=== PATIENT | male | born 1935 | race Caucasian/White ===

== ENCOUNTER 2016-09-09 05:18 | Day surgery (SDC) | payer OTHER, BC ==
[2016-09-04 10:48] VITALS: BMI 28.8
[2016-09-09] MEDS ORDERED: LIDOCAINE HCL 1%, 10 MG/ML (20ML VIAL) ONE ×2 (11:16→13:17)
[2016-09-09] MEDS ORDERED: ACETAMINOPHEN 1000 MG/100 ML VIAL (NON FORMULARY) IVPB ONE (12:24)
[2016-09-09] MEDS ORDERED: IBUPROFEN 800 MG/8 ML IJ IVPB PRN (12:24)
[2016-09-09] MEDS ORDERED: DEXTROSE 5%-0.45% SALINE 1,000 ML IV SCH (12:30)
[2016-09-09] MEDS ORDERED: ceFAZolin SODIUM 1 GM VIAL IVPB ONE (12:35)
[2016-09-09] MEDS ORDERED: MIDAZOLAM HCL 2 MG/2 ML SINGLE DOSE VIAL ONE (12:37)
[2016-09-09] MEDS ORDERED: PROPOFOL 20 ML ONE ×3 (12:37)
[2016-09-09] MEDS ORDERED: LIDOCAINE HCL 1%, 10 MG/ML (20ML VIAL) IJ ONE (13:24)
[2016-09-09] MEDS ORDERED: LIDOCAINE HCL/PF 2% SDV 5ML VIAL ONE (13:26)
[2016-09-09] MEDS ORDERED: ceFAZolin SODIUM 1 GM VIAL ONE (13:26)
[2016-09-09] MEDS ORDERED: oxyCODONE HCL 5 MG TABLET PO PRN (13:41)
[2016-09-09] MEDS ORDERED: LACTATED RINGERS SOLUTION 1,000 ML IV SCH (13:45)
[2016-09-09 15:12] VITALS: TEMP 97.6
[2016-09-09 16:20] VITALS: BP 149/77; PULSE 64
--- NOTE | 2016-09-22 10:25 | OP ---
DATE OF OPERATION: 09/09/2016 PREOPERATIVE DIAGNOSIS: Urge urinary incontinence. POSTOPERATIVE DIAGNOSIS: Urge urinary incontinence. PROCEDURE: InterStim battery and lead implant. ANESTHESIA: Local with IV sedation. SURGEON: Reid Hartley M.D. FINDING: S3 stimulation at low amplitude. ESTIMATED BLOOD LOSS: Minimal. PREOPERATIVE INDICATIONS: The patient is a 80-year-old male who suffers from urge urinary incontinence. He underwent a test InterStim trial, which revealed greater than 50% improvement in his symptoms. He comes to the OR for implant. OPERATION: The patient was brought to the OR, placed on the table in the prone position. All pressure points were protected. Patient was given IV sedation and IV antibiotics. The back was prepped and draped sterilely. Timeout was performed. The S3 foramina were identified both with bony landmarks and with fluoroscopy. Spinal needles were placed into the S3 foramen bilaterally and good S3 response was noted at low amplitude on the right side. Of note was reflection and sensation in the testicles. A quadruple lead was then placed under fluoroscopic guidance using the Seldinger technique under fluoroscopy. Again the lead was tested and all 4 leads displayed good response at low amplitude. This lead was then tunneled underneath the skin to an incision made on the lateral aspect of the right hip. The lead was then connected to a battery, which was implanted in the pocket made in this area. were checked and noted to be normal. The pocket was closed in 2 layers using 3-0 and 4-0 Vicryl and the original lead placement was closed using 4-0 Monocryl. Wounds were dressed. Patient was awoken up. Rodrigo [id number]
== END 2016-09-09 16:26 | disposition home or self-care (01) ==
LOC: JASU-SURG 05:18
PROVIDERS: ATTEND Urology
PROC: 01HY0MZ Insertion of Neurostimulator Lead into Peripheral Nerve, Open Approach (ICD-10-PCS; 2016-09-09)
PROC: 0JH70BZ Insertion of Single Array Stimulator Generator into Back Subcutaneous Tissue and Fascia, Open Approach (ICD-10-PCS; principal; 2016-09-09 12:00)
DX: N39.41 Urge incontinence (principal)
CPT/HCPCS: 64581; 64590; C1767; C1778; 76000-TC; 94760

== ENCOUNTER 2017-03-24 05:22 | Day surgery (SDC) | payer OTHER, BC ==
[2017-03-23 17:38] VITALS: BMI 28.8
--- NOTE | 2017-03-24 07:33 | HP ---
History & Physical Update - History History: No Change - Physical Physical: No Change - Assessment Assessment: No Change - Plan Plan: No Change
[2017-03-24] MEDS ORDERED: IBUPROFEN 800 MG/8 ML IJ IVPB PRN (08:26)
[2017-03-24] MEDS ORDERED: ACETAMINOPHEN 1000 MG/100 ML VIAL (NON FORMULARY) IVPB ONE (08:30)
[2017-03-24] MEDS ORDERED: DEXTROSE 5%-0.45% SALINE 1,000 ML IV SCH (08:30)
[2017-03-24 08:46] VITALS: TEMP 97.5
[2017-03-24] MEDS ORDERED: SODIUM CHLORIDE 0.9% P/F 10 ML VIAL IJ ONE (11:45)
[2017-03-24] MEDS ORDERED: MIDAZOLAM HCL 2 MG/2 ML SINGLE DOSE VIAL ONE ×2 (11:45)
[2017-03-24] MEDS ORDERED: ceFAZolin SODIUM 1 GM VIAL ONE (11:45)
[2017-03-24] MEDS ORDERED: ceFAZolin SODIUM 1 GM VIAL IVPB ONE (12:06)
[2017-03-24] MEDS ORDERED: LIDOCAINE HCL 1%, 10 MG/ML (20ML VIAL) INF ONE ×2 (12:42)
[2017-03-24 19:07] VITALS: BP 147/72; PULSE 61
--- NOTE | 2017-03-25 11:38 | PATH ---
Surgical Pathology Report Patient Name: ROBERT POOLE [facility]. Rec. #: [id number] /Age/Gender: 1935 (Age: 81) / M Account: [id number] Location: [facility] SUR[facility] Taken: 03/24/2017 Received: 03/24/2017 Reported: 03/25/2017 Physicians: Reid Hartley M.D. 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 Electronically Signed Mario Diallo M.D. Gross Description Received fresh labeled "old InterStim implant," is a 4.8 x 4.3 x 0.7 cm carias metallic device, consistent with a battery. The specimen has the following inscription: "Medtronic InterStim II SN: [id number]." Also received within the same container is a 24 cm in length portion of case metallic wire. No soft tissue is present. No sections are submitted, gross only. /03/24/2017 [place]03/24/2017
--- NOTE | 2017-03-26 10:33 | OP ---
DATE OF OPERATION: 03/24/2017 PREOPERATIVE DIAGNOSIS: Urinary frequency. POSTOPERATIVE DIAGNOSIS: Urinary frequency. PROCEDURE: Replacement of InterStim battery and lead. SURGEON: Reid Hartley MD ESTIMATED BLOOD LOSS: Minimal. SPECIMEN: Old battery and lead. ANESTHESIA: IV sedation with local. PREOPERATIVE INDICATIONS: The patient is an 81-year-old male with severe urinary frequency and urgency. He had a history of prostate cancer with interstitial seed placement years ago. He had previously had relief and response with InterStim stimulation. However, recently it has been less effective. X-ray of the lead reveals that it has migrated out of the ideal position. He comes to the OR for replacement of the battery and lead. OPERATION: The patient was brought to the OR, placed on the table in the prone position. All pressure points were protected. Back was prepped and draped sterilely. Patient was given IV sedation and IV antibiotics. Timeout was performed. Incision was made over the previous battery site after local anesthesia was injected. The battery was pulled out of the incision. This was removed. The lead was identified and a 2nd incision was made over the lead insertion site and the lead was removed in total. This was sent off for pathological confirmation. A new finder needle was placed in the S3 foramen on the right side. This was then stimulated. Good toe deflection and anal robert seen. Appearance on the x-ray appeared to be appropriate as well. Using the Seldinger technique, the tract was dilated and a quadripolar lead was placed. All 4 leads had response and it appeared to be in a good position on x-ray. This was tunneled back to the original battery site. A new battery was connected, placed in the pocket. Impedances were checked and noted to be normal. Wounds were all closed with Vicryl suture. Wounds were dressed. Patient was woken up. Rodrigo [id number]
== END 2017-03-24 16:00 | disposition home or self-care (01) ==
LOC: JASU-SURG 05:22
PROVIDERS: ATTEND Urology
PROC: 0JH70BZ Insertion of Single Array Stimulator Generator into Back Subcutaneous Tissue and Fascia, Open Approach (ICD-10-PCS; 2017-03-24)
PROC: 01PY0MZ Removal of Neurostimulator Lead from Peripheral Nerve, Open Approach (ICD-10-PCS; 2017-03-24)
PROC: 01HY0MZ Insertion of Neurostimulator Lead into Peripheral Nerve, Open Approach (ICD-10-PCS; 2017-03-24)
PROC: 0JPT0MZ Removal of Stimulator Generator from Trunk Subcutaneous Tissue and Fascia, Open Approach (ICD-10-PCS; principal; 2017-03-24 10:00)
DX: T85.890A Other specified complication of nervous system prosthetic devices, implants and grafts, initial encounter (principal); R35.0 Frequency of micturition; R39.15 Urgency of urination; Z85.46 Personal history of malignant neoplasm of prostate
CPT/HCPCS: 64581; 64590; C1767; C1778; 76000-TC; 88300-TC

== ENCOUNTER 2019-04-12 10:08 | Day surgery (SDC) | payer OTHER, BC ==
[2019-04-11 11:51] VITALS: BMI 27.3
--- NOTE | 2019-04-12 09:32 | HP ---
History & Physical Update - History History: No Change - Physical Physical: No Change - Assessment Assessment: No Change - Plan Plan: No Change (04/11/19)
[~2019-04-12 10:08] MED LIST: ACETAMINOPHEN 1000 MG/100 ML VIAL (NON FORMULARY) IVPB ONE; DEXTROSE 5%-0.45% SALINE 1,000 ML IV SCH; IBUPROFEN 800 MG/8 ML IJ IVPB SCH
[2019-04-12] MEDS ORDERED: LIDOCAINE HCL 1%, 10 MG/ML (20ML VIAL) ONE (11:21)
[2019-04-12] MEDS ORDERED: LIDOCAINE 1%-EPI 1:100,000 30 ML MDV IJ ONE (11:31)
[2019-04-12] MEDS ORDERED: MIDAZOLAM HCL 2 MG/2 ML SINGLE DOSE VIAL ONE (11:46)
[2019-04-12] MEDS ORDERED: LIDOCAINE HCL/PF 2% SDV 5ML VIAL ONE (11:46)
[2019-04-12] MEDS ORDERED: PROPOFOL 20 ML ONE (11:46)
[2019-04-12] MEDS ORDERED: ceFAZolin SODIUM 1 GM VIAL ONE (12:10)
[2019-04-12] MEDS ORDERED: ceFAZolin SODIUM 1 GM VIAL IVPB ONE (12:11)
[2019-04-12] MEDS ORDERED: LIDOCAINE 1%/EPI 1:100000 (20 ML MULTI DOSE VIAL) IJ ONE ×2 (12:18)
[2019-04-12] MEDS ORDERED: ACETAMINOPHEN 325 MG TABLET (FP) PO PRN (12:51)
[2019-04-12] MEDS ORDERED: ONDANSETRON 4 MG/2 ML VIAL IVPUSH PRN (12:51)
[2019-04-12] MEDS ORDERED: LACTATED RINGERS SOLUTION 1,000 ML IV SCH (13:00)
[2019-04-12] MEDS ORDERED: ACETAMINOPHEN INJECTION 100 ML IVPB ONE (13:56)
[2019-04-12 14:06] VITALS: TEMP 98
[2019-04-12 16:07] VITALS: BP 169/84; PULSE 65
--- NOTE | 2019-04-14 16:46 | PATH ---
Surgical Pathology Report Patient Name: ROBERT POOLE Med. Rec. #: [id number] /Age/Gender: 1935 (Age: 83) / M Account: [id number] Location: [facility] Taken: 04/12/2019 Received: 04/12/2019 Reported: 04/14/2019 Physicians: Reid Hartley M.D. 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 MACROSCOPIC DIAGNOSIS. Electronically Signed Cynthia Nova M.D. Gross Description Received fresh labeled "old interstim lead and battery," is a 4.9 x 4.3 x 0.7 cm carias metallic device, consistent with a battery. The specimen has the following inscription: "Medtronic InterStim II SN: [id number]." Separately received within the same container is a 24 cm in length case metallic portion of wire. No soft tissue is present. No sections are submitted, gross only. 04/13/2019 [facility]04/13/2019
--- NOTE | 2019-06-01 14:45 | OP ---
DATE OF OPERATION: 04/12/2019 PREOPERATIVE DIAGNOSIS: Urge urinary incontinence. POSTOPERATIVE DIAGNOSIS: Urge urinary incontinence. PROCEDURE: Removal of InterStim lead and battery. SURGEON: Reid Hartley MD ESTIMATED BLOOD LOSS: Minimal. SPECIMEN: Lead and battery of InterStim. ANESTHESIA: IV sedation with local. PREOPERATIVE INDICATIONS: The patient is an 83-year-old male with a history of spinal stenosis, who suffers from urge urinary incontinence. He had an InterStim placed some time ago, which has helped his symptoms; however, he is now having trouble with his back and his neurologist wishes to perform an MRI on him for diagnostic purposes. This cannot be done with the implant in place, and he comes to the OR for implant removal. OPERATION: The patient was brought to the OR, placed on the table in the prone position. All pressure points were protected. IV sedation and IV antibiotics were given. Timeout was performed. The back was prepped and draped sterilely. An incision was made over the battery. This was dissected out. A small paramedian incision over the sacrum was then made to identify the wire. The wire was then removed in total. These were sent off for pathological confirmation. The wounds were closed in 2 layers with 3-0 Vicryl suture and Dermabond. The wounds were dressed and the patient was woken up. REID HARTLEY M.D. [id number]
== END 2019-04-12 15:50 | disposition home or self-care (01) ==
LOC: JASU-SURG 10:08
PROVIDERS: ATTEND Urology
PROC: 0JPT0MZ Removal of Stimulator Generator from Trunk Subcutaneous Tissue and Fascia, Open Approach (ICD-10-PCS; 2019-04-12)
PROC: 01PY0MZ Removal of Neurostimulator Lead from Peripheral Nerve, Open Approach (ICD-10-PCS; principal; 2019-04-12 10:30)
DX: Z46.2 Encounter for fitting and adjustment of other devices related to nervous system and special senses (principal); N39.41 Urge incontinence
CPT/HCPCS: 76000-TC-FY; 88300-TC; 94760; J0131

== ENCOUNTER 2021-05-20 11:25 | Inpatient (IN) | payer OTHER, BC ==
[2021-05-20 12:58] LABS: BASO % 0.6 % (0-2.0); EOS % 2.3 % (0-4.5); HEMOGLOBIN 13.4 GM/dL (11.7-16.9); LYMPH % 13.8 % (8-40); MCH 32.5 pg (25.7-33.7); MCHC 32.8 g/dl (32.0-35.9); MEAN CELL VOLUME 99.2 fl (80-96); MEAN PLT VOLUME 7.5 fl (7.5-11.1); MONO % 12.8 % (3.8-10.2); NEUT % 70.5 % (42.8-82.8); PLATELET COUNT 311 10^3/uL (134-434); RBC 4.14 M/mm3 (4.00-5.60); RDW 13.6 % (11.9-15.9); WHITE BLOOD COUNT 8.7 K/mm3 (4.0-10.0)
[2021-05-20 13:09] LABS: INR 1.17 (0.83-1.09); PROTHROMBIN TIME (PATIENT) 13.5 SEC (9.7-13.0)
[2021-05-20 13:12] LABS: ACTIVATED PTT 34.9 SECONDS (25.2-36.5)
[2021-05-20 13:21] LABS: CHLORIDE 108 mmol/L (98-107); SODIUM 142 mmol/L (136-145)
[2021-05-20 13:23] LABS: CALCIUM 9.1 mg/dL (8.5-10.1)
[2021-05-20 13:24] LABS: ANION GAP 8 MMOL/L (8-16); BLOOD UREA NITROGEN 34.5 mg/dL (7-18); CO2 26 mmol/L (21-32); GLUCOSE,RANDOM 102 mg/dL (74-106)
[2021-05-20 13:27] LABS: SGOT/AST 17 U/L (15-37); SGPT/ALT 14 U/L (13-61)
[2021-05-20 13:29] LABS: TOT PROT 7.1 g/dl (6.4-8.2)
[2021-05-20 13:30] LABS: ALK PHOS 79 U/L (45-117)
[2021-05-20 13:33] LABS: BILIRUBIN,TOTAL 0.5 mg/dL (0.2-1)
[2021-05-20 20:26] LABS: EPI CELLS 7 /uL (0-25.1); HYALINE CASTS 3 /uL (0-3.1); URINE APPEARANCE CLEAR; URINE BACTERIA 3 /uL (0-1359); URINE BILIRUBIN NEGATIVE (NEGATIVE); URINE COLOR YELLOW; URINE GLUCOSE (UA) NEGATIVE (NEGATIVE); URINE KETONE TRACE (NEGATIVE); URINE LEUK ESTERASE NEGATIVE (NEGATIVE); URINE NITRITE NEGATIVE (NEGATIVE); URINE PROTEIN 3+ (NEGATIVE); URINE RBC 22 /uL (0-23.9); URINE WBC 16 /uL (0-25.8)
[2021-05-20 20:38] LABS: PHOSPHOROUS 2.9 mg/dL (2.5-4.9)
[2021-05-21 02:42] VITALS: BMI 24.1
[2021-05-21] MEDS: LEVOTHYROXINE NA 75 MCG TABLET (FP) PO SCH (09:25)
[2021-05-21] MEDS: ASPIRIN 81 MG CHEWABLE TABLETS PO SCH (11:53)
[2021-05-21] MEDS: LISINOPRIL 20 MG TABLET PO SCH (11:53)
[2021-05-21] MEDS: FLUoxetine HCL 20 MG CAPSULE PO SCH (12:17)
[2021-05-21] MEDS: ATORVASTATIN CA 20 MG TABLET (FP) PO SCH (22:46)
[2021-05-22] MEDS: LEVOTHYROXINE NA 75 MCG TABLET (FP) PO SCH (06:44)
[2021-05-22] MEDS: FLUoxetine HCL 20 MG CAPSULE PO SCH (09:06)
[2021-05-22] MEDS: ASPIRIN 81 MG CHEWABLE TABLETS PO SCH (09:06)
[2021-05-22] MEDS: LISINOPRIL 20 MG TABLET PO SCH (09:06)
[2021-05-22] MEDS ORDERED: cefTRIAXone SODIUM 1 GM VIAL ONE ×2 (12:17→12:29)
[2021-05-22] MEDS ORDERED: DEXTROSE 5%-WATER - 50 ML IVPB ONE ×2 (12:17→12:29)
[2021-05-22] MEDS: CEFTRIAXONE 1 GM in DEXTROSE 5%-WATER - 50 ML IVPB SCH (12:21)
[2021-05-22] MEDS: AZITHROMYCIN IVPB 500 MG/250 ML BAG IVPB SCH (13:45)
[2021-05-22] MEDS: ATORVASTATIN CA 20 MG TABLET (FP) PO SCH (21:05)
[2021-05-23] MEDS: LEVOTHYROXINE NA 75 MCG TABLET (FP) PO SCH (06:02)
[2021-05-23] MEDS ORDERED: DEXTROSE 5%-WATER - 50 ML IVPB ONE (09:54)
[2021-05-23] MEDS ORDERED: cefTRIAXone SODIUM 1 GM VIAL ONE (09:54)
[2021-05-23] MEDS: CEFTRIAXONE 1 GM in DEXTROSE 5%-WATER - 50 ML IVPB SCH (10:21)
[2021-05-23] MEDS: FLUoxetine HCL 20 MG CAPSULE PO SCH (10:22)
[2021-05-23] MEDS: ASPIRIN 81 MG CHEWABLE TABLETS PO SCH (10:22)
[2021-05-23] MEDS: LISINOPRIL 20 MG TABLET PO SCH (10:22)
[2021-05-23] MEDS: AZITHROMYCIN IVPB 500 MG/250 ML BAG IVPB SCH (11:24)
[2021-05-23] MEDS: ATORVASTATIN CA 20 MG TABLET (FP) PO SCH (21:10)
[2021-05-24] MEDS: LEVOTHYROXINE NA 75 MCG TABLET (FP) PO SCH (06:36)
[2021-05-24] MEDS: ASPIRIN 81 MG CHEWABLE TABLETS PO SCH (09:11)
[2021-05-24] MEDS: LISINOPRIL 20 MG TABLET PO SCH (09:11)
[2021-05-24] MEDS: FLUoxetine HCL 20 MG CAPSULE PO SCH (09:12)
[2021-05-24] MEDS: AZITHROMYCIN IVPB 500 MG/250 ML BAG IVPB SCH (09:13)
[2021-05-24 10:36] LABS: BASO % 0.7 % (0-2.0); EOS % 4.3 % (0-4.5); HEMATOCRIT 37.1 % (35.4-49); HEMOGLOBIN 12.6 GM/dL (11.7-16.9); LYMPH % 17.1 % (8-40); MCH 33.1 pg (25.7-33.7); MEAN CELL VOLUME 97.4 fl (80-96); MONO % 9.9 % (3.8-10.2); PLATELET COUNT 302 10^3/uL (134-434); RBC 3.81 M/mm3 (4.00-5.60); RDW 13.8 % (11.9-15.9); WHITE BLOOD COUNT 10.2 K/mm3 (4.0-10.0)
[2021-05-24 10:50] LABS: CALCIUM 8.9 mg/dL (8.5-10.1)
[2021-05-24 10:51] LABS: ALBUMIN 2.7 g/dl (3.4-5.0); BLOOD UREA NITROGEN 27.3 mg/dL (7-18)
[2021-05-24 10:54] LABS: CREATININE 1.9 mg/dL (0.55-1.3)
[2021-05-24 10:56] LABS: BILIRUBIN,TOTAL 0.4 mg/dL (0.2-1); TOT PROT 6.4 g/dl (6.4-8.2)
[2021-05-24] MEDS: HEPARIN NA (PORCINE) 5,000 UNITS/ML 1ML VIAL SQ SCH ×2 (12:41→21:50)
[2021-05-24] MEDS ORDERED: cefTRIAXone SODIUM 1 GM VIAL ONE (14:47)
[2021-05-24] MEDS ORDERED: DEXTROSE 5%-WATER - 50 ML IVPB ONE (14:47)
[2021-05-24] MEDS: CEFTRIAXONE 1 GM in DEXTROSE 5%-WATER - 50 ML IVPB SCH (14:49)
[2021-05-24] MEDS: ATORVASTATIN CA 20 MG TABLET (FP) PO SCH (22:00)
[2021-05-25] MEDS: LEVOTHYROXINE NA 75 MCG TABLET (FP) PO SCH (06:53)
[2021-05-25] MEDS ORDERED: DEXTROSE 5%-WATER - 50 ML IVPB ONE (09:15)
[2021-05-25] MEDS ORDERED: cefTRIAXone SODIUM 1 GM VIAL ONE (09:15)
[2021-05-25] MEDS: CEFTRIAXONE 1 GM in DEXTROSE 5%-WATER - 50 ML IVPB SCH (09:54)
[2021-05-25] MEDS: LISINOPRIL 20 MG TABLET PO SCH (09:54)
[2021-05-25] MEDS: FLUoxetine HCL 20 MG CAPSULE PO SCH (09:55)
[2021-05-25] MEDS: ASPIRIN 81 MG CHEWABLE TABLETS PO SCH (09:55)
[2021-05-25] MEDS: HEPARIN NA (PORCINE) 5,000 UNITS/ML 1ML VIAL SQ SCH ×2 (10:02→20:59)
[2021-05-25] MEDS: AZITHROMYCIN IVPB 500 MG/250 ML BAG IVPB SCH (10:45)
[2021-05-25] MEDS ORDERED: BISACODYL 10 MG SUPP.RECT PR ONE (15:37)
[2021-05-25] MEDS ORDERED: BISACODYL 5 MG TABLET.DR (FP) PO PRN (15:37)
[2021-05-25] MEDS ORDERED: LISINOPRIL 10 MG TABLET PO ONE (15:46)
[2021-05-25] MEDS ORDERED: MINERAL OIL ENEMA 133 ML ENEMA RC ONE (17:00)
[2021-05-25] MEDS: ATORVASTATIN CA 20 MG TABLET (FP) PO SCH (21:00)
[2021-05-26] MEDS: LEVOTHYROXINE NA 75 MCG TABLET (FP) PO SCH (06:17)
[2021-05-26] MEDS ORDERED: cefTRIAXone SODIUM 1 GM VIAL ONE (08:34)
[2021-05-26] MEDS ORDERED: DEXTROSE 5%-WATER - 50 ML IVPB ONE (08:34)
[2021-05-26] MEDS: AZITHROMYCIN IVPB 500 MG/250 ML BAG IVPB SCH (09:28)
[2021-05-26] MEDS: FLUoxetine HCL 20 MG CAPSULE PO SCH (09:29)
[2021-05-26] MEDS: ASPIRIN 81 MG CHEWABLE TABLETS PO SCH (09:29)
[2021-05-26] MEDS: HEPARIN NA (PORCINE) 5,000 UNITS/ML 1ML VIAL SQ SCH ×2 (09:29→22:35)
[2021-05-26] MEDS: LISINOPRIL 10 MG TABLET PO SCH (09:29)
[2021-05-26] MEDS: CEFTRIAXONE 1 GM in DEXTROSE 5%-WATER - 50 ML IVPB SCH (11:34)
[2021-05-26] MEDS: ATORVASTATIN CA 20 MG TABLET (FP) PO SCH (22:37)
[2021-05-27 06:31] VITALS: BP 167/76; PULSE 72; TEMP 0.3
[2021-05-27] MEDS: LEVOTHYROXINE NA 75 MCG TABLET (FP) PO SCH (06:32)
[2021-05-27] MEDS ORDERED: DEXTROSE 5%-WATER - 50 ML IVPB ONE (09:29)
[2021-05-27] MEDS ORDERED: cefTRIAXone SODIUM 1 GM VIAL ONE (09:29)
[2021-05-27] MEDS: LISINOPRIL 10 MG TABLET PO SCH (09:33)
[2021-05-27] MEDS: HEPARIN NA (PORCINE) 5,000 UNITS/ML 1ML VIAL SQ SCH (09:33)
[2021-05-27] MEDS: CEFTRIAXONE 1 GM in DEXTROSE 5%-WATER - 50 ML IVPB SCH (09:33)
[2021-05-27] MEDS: ASPIRIN 81 MG CHEWABLE TABLETS PO SCH (09:34)
[2021-05-27] MEDS: FLUoxetine HCL 20 MG CAPSULE PO SCH (09:34)
== END 2021-05-27 11:38 | disposition home health service (06) | DRG 178 ==
LOC: JER 11:25 → JERBED 16:39 → J5S 05-21 01:50
PROVIDERS: ADMIT Specialist; ATTEND Specialist
PROC: 0CJS8ZZ Inspection of Larynx, Via Natural or Artificial Opening Endoscopic (ICD-10-PCS; principal; 2021-05-23)
DX: J69.0 Pneumonitis due to inhalation of food and vomit (principal); R44.3 Hallucinations, unspecified; I10 Essential (primary) hypertension; I25.10 Atherosclerotic heart disease of native coronary artery without angina pectoris; E78.5 Hyperlipidemia, unspecified; G47.33 Obstructive sleep apnea (adult) (pediatric); R27.0 Ataxia, unspecified; R13.10 Dysphagia, unspecified; F03.90 Unspecified dementia, unspecified severity, without behavioral disturbance, psychotic disturbance, mood disturbance, and anxiety; E03.9 Hypothyroidism, unspecified; F32.A Depression, unspecified; R91.1 Solitary pulmonary nodule; R62.7 Adult failure to thrive; Z68.24 Body mass index [BMI] 24.0-24.9, adult; Z74.01 Bed confinement status; Z95.1 Presence of aortocoronary bypass graft; Z85.46 Personal history of malignant neoplasm of prostate; Z86.73 Personal history of transient ischemic attack (TIA), and cerebral infarction without residual deficits
CPT/HCPCS: 36415; 70450-TC; 70551-TC; 71045-TC-FY; 71250-TC; 72125-TC; 72170-TC-FY; 74019-TC-FY; 74230-TC-FY; 76775-TC; 76856-TC; 80053; 81003; 82550; 82607; 83735; 84100; 84443; 84484; 85025; 85610; 85730; 86850; 86900; 86901; 87086; 87899; 92611-GN; 93005; 93010; 97116-GP; 97162-GP; 99285-25; C9803; J1644; U0003; U0005